=== PATIENT | male | born 1975 | race Caucasian/White ===

== ENCOUNTER 2024-09-03 12:21 | Emergency (ER) | payer SELFPAY ==
[~2024-09-03] VITALS: Ht 165.1 cm; Wt 70.4 kg
[2024-09-03] MEDS ORDERED: NEURONTIN100 MG PO (14:40)
[2024-09-03 15:09] VITALS: BP 138/94
== END 2024-09-03 15:11 | disposition home or self-care (01) | DRG 563 ==
LOC: ED 12:21
DX: S62.393A Other fracture of third metacarpal bone, left hand, initial encounter for closed fracture (principal); S62.395A Other fracture of fourth metacarpal bone, left hand, initial encounter for closed fracture; S62.317A Displaced fracture of base of fifth metacarpal bone, left hand, initial encounter for closed fracture; Y04.0XXA Assault by unarmed brawl or fight, initial encounter; Y92.149 Unspecified place in prison as the place of occurrence of the external cause